=== PATIENT | male | born 1940 | race Caucasian/White ===

== ENCOUNTER 2017-07-22 19:06 | Emergency (ER) | payer MEDICARE, MEDICAID | END 2017-07-22 20:10 | disposition home or self-care (01) | LOC: FTE 19:06 | DX: T82.838A Hemorrhage due to vascular prosthetic devices, implants and grafts, initial encounter (principal); I10 Essential (primary) hypertension; E11.9 Type 2 diabetes mellitus without complications; Y82.8 Other medical devices associated with adverse incidents; Z79.84 Long term (current) use of oral hypoglycemic drugs | CPT/HCPCS: 99282 ==

== ENCOUNTER 2017-09-07 07:26 | Day surgery (SDC) | payer MEDICARE, OTHER, MEDICAID ==
[2017-09-07 09:04] LABS: ADD MAN DIFF? NO
[2017-09-07 09:07] LABS: WHITE BLOOD COUNT 4.2 10^3/ul (4.8-10.8)
[2017-09-07 09:07] LABS: ABNORMAL IP MESSAGE 1; BASOPHILS % 0.5 % (0.0-2.0); EOSINOPHILS # 0.1 10^3/ul (0.0-0.5); EOSINOPHILS % 2.9 % (0.0-7.0); HEMATOCRIT 32.5 % (42.0-52.0); HEMOGLOBIN 10.7 g/dl (14.0-18.0); LYMPHOCYTES # 0.5 10^3/ul (0.8-2.9); LYMPHOCYTES % 12.4 % (15.0-51.0); MEAN CORPUSCULAR HEMOGLOBIN 32.3 pg (29.0-33.0); MEAN CORPUSCULAR HGB CONC 32.9 g/dl (32.0-37.0); MEAN CORPUSCULAR VOLUME 98.2 fl (82.0-101.0); MEAN PLATELET VOLUME 10.2 fl (7.4-10.4); MONOCYTE # 0.5 10^3/ul (0.3-0.9); PLATELET COUNT 179 10^3/UL (140-415); POSITIVE DIFF @See below; RED BLOOD COUNT 3.31 10^6/ul (4.70-6.10); RED CELL DISTRIBUTION WIDTH 14.6 % (11.5-14.5)
[2017-09-07 09:15] LABS: HOLD TRANSMISSIONS 1
[2017-09-07 09:27] LABS: INR 1.15; PROTIME 14.9 Sec (11.9-14.9); PT RATIO 1.2
[2017-09-07 09:28] LABS: PARTIAL THROMBOPLASTIN TIME 27.6 Sec (25.0-35.0)
[2017-09-07 09:29] LABS: ANION GAP 14 (8-16); BLOOD UREA NITROGEN 27 mg/dl (7-20); CALCIUM 9.4 mg/dl (8.4-10.2); CARBON DIOXIDE 34 mmol/L (21-31); CHLORIDE 101 mmol/L (97-110); CREATININE 6.78 mg/dl (0.61-1.24); GLUCOSE 99 mg/dl (70-220); POTASSIUM 4.5 mmol/L (3.5-5.1); SODIUM 144 mmol/L (135-144)
[2017-09-07] MEDS ORDERED: IODIXANOL LOCM 100 ML BTL (10:16)
[2017-09-07] MEDS ORDERED: MIDAZOLAM 1 MG/ML 2 ML INJ (10:17)
[2017-09-07] MEDS ORDERED: FENTAnyl 50 MCG/ML VIAL (10:17)
[2017-09-07] MEDS ORDERED: LIDOCAINE 1% (MDV) 10 ML INJ ×2 (10:17→10:39)
[2017-09-07] MEDS ORDERED: hydrALAzine 20 MG INJ (10:40)
== END 2017-09-07 11:32 | disposition home or self-care (01) ==
LOC: SDS 07:26
DX: T82.858A Stenosis of other vascular prosthetic devices, implants and grafts, initial encounter (principal); Y84.1 Kidney dialysis as the cause of abnormal reaction of the patient, or of later complication, without mention of misadventure at the time of the procedure; I12.0 Hypertensive chronic kidney disease with stage 5 chronic kidney disease or end stage renal disease; N18.6 End stage renal disease
CPT/HCPCS: 36589; 75820; 80048; 82962; 85025; 85610; 85730

== ENCOUNTER 2018-02-23 22:10 | Emergency (ER) | payer MEDICARE, MEDICAID | END 2018-02-24 03:24 | disposition home or self-care (01) | LOC: E/R 22:10 | DX: S09.90XA Unspecified injury of head, initial encounter (principal); R40.2142 Coma scale, eyes open, spontaneous, at arrival to emergency department; R40.2252 Coma scale, best verbal response, oriented, at arrival to emergency department; R40.2362 Coma scale, best motor response, obeys commands, at arrival to emergency department; I12.9 Hypertensive chronic kidney disease with stage 1 through stage 4 chronic kidney disease, or unspecified chronic kidney disease; N18.9 Chronic kidney disease, unspecified; E11.22 Type 2 diabetes mellitus with diabetic chronic kidney disease; R93.0 Abnormal findings on diagnostic imaging of skull and head, not elsewhere classified; W18.30XA Fall on same level, unspecified, initial encounter; Y92.009 Unspecified place in unspecified non-institutional (private) residence as the place of occurrence of the external cause; Z79.84 Long term (current) use of oral hypoglycemic drugs | CPT/HCPCS: 70450; 73080-RT; 99284-25 ==

== ENCOUNTER 2018-03-03 13:38 | Emergency (ER) | payer MEDICARE, MEDICAID ==
[2018-03-03 14:36] LABS: ADD MAN DIFF? NO
[2018-03-03 14:41] LABS: ABNORMAL IP MESSAGE 1; BASOPHILS % 0.5 % (0.0-2.0); EOSINOPHILS # 0.2 10^3/ul (0.0-0.5); EOSINOPHILS % 3.6 % (0.0-7.0); HEMATOCRIT 29.9 % (42.0-52.0); HEMOGLOBIN 9.9 g/dl (14.0-18.0); LYMPHOCYTES # 0.3 10^3/ul (0.8-2.9); LYMPHOCYTES % 4.9 % (15.0-51.0); MEAN CORPUSCULAR HEMOGLOBIN 29.1 pg (29.0-33.0); MEAN CORPUSCULAR HGB CONC 33.1 g/dl (32.0-37.0); MEAN CORPUSCULAR VOLUME 87.9 fl (82.0-101.0); MEAN PLATELET VOLUME 9.1 fl (7.4-10.4); MONOCYTE # 0.7 10^3/ul (0.3-0.9); MONOCYTES % 12.4 % (0.0-11.0); NEUTROPHIL # 4.4 10^3/ul (1.6-7.5); NEUTROPHILS % 78.4 % (39.0-77.0); PLATELET COUNT 162 10^3/UL (140-415); POSITIVE DIFF @See below; RED CELL DISTRIBUTION WIDTH 14.3 % (11.5-14.5)
[2018-03-03 14:41] LABS: WHITE BLOOD COUNT 5.6 10^3/ul (4.8-10.8)
[2018-03-03 14:57] LABS: ALANINE AMINOTRANSFERASE 19 IU/L (13-69); ALBUMIN 3.5 g/dl (3.3-4.9); ALKALINE PHOSPHATASE 59 IU/L (42-121); ANION GAP 12 (5-13); ASPARTATE AMINO TRANSFERASE 18 IU/L (15-46); BILIRUBIN,INDIRECT 0.1 mg/dl (0-1.1); BILIRUBIN,TOTAL 0.1 mg/dl (0.2-1.3); BLOOD UREA NITROGEN 29 mg/dl (7-20); CALCIUM 9.3 mg/dl (8.4-10.2); CARBON DIOXIDE 30 mmol/L (21-31); CHLORIDE 96 mmol/L (97-110); CREATININE 4.48 mg/dl (0.61-1.24); GLUCOSE 158 mg/dl (70-220); LIPASE 168 U/L (23-300); POTASSIUM 3.7 mmol/L (3.5-5.1); SODIUM 138 mmol/L (135-144); TOTAL PROTEIN 6.4 g/dl (6.1-8.1)
[2018-03-03] MEDS: DILTIAZEM 30 MG TAB PO (15:36)
== END 2018-03-03 17:02 | disposition home or self-care (01) ==
LOC: E/R 13:38
DX: R00.0 Tachycardia, unspecified (principal); I12.9 Hypertensive chronic kidney disease with stage 1 through stage 4 chronic kidney disease, or unspecified chronic kidney disease; N18.9 Chronic kidney disease, unspecified; E11.22 Type 2 diabetes mellitus with diabetic chronic kidney disease; Z79.84 Long term (current) use of oral hypoglycemic drugs; Z99.2 Dependence on renal dialysis
CPT/HCPCS: 71045; 80053; 83690; 84484; 85025; 93005; 99285-25

== ENCOUNTER 2018-07-24 19:38 | Emergency (ER) | payer MEDICARE, MEDICAID ==
[2018-07-24 21:42] LABS: ADD MAN DIFF? NO
[2018-07-24 21:44] LABS: WHITE BLOOD COUNT 6.2 10^3/ul (4.8-10.8)
[2018-07-24 21:44] LABS: ABNORMAL IP MESSAGE 1; BASOPHILS % 0.5 % (0.0-2.0); EOSINOPHILS # 0.1 10^3/ul (0.0-0.5); EOSINOPHILS % 1.8 % (0.0-7.0); HEMATOCRIT 29.3 % (42.0-52.0); HEMOGLOBIN 9.1 g/dl (14.0-18.0); LYMPHOCYTES # 0.4 10^3/ul (0.8-2.9); LYMPHOCYTES % 6.2 % (15.0-51.0); MEAN CORPUSCULAR HEMOGLOBIN 26.4 pg (29.0-33.0); MEAN CORPUSCULAR HGB CONC 31.1 g/dl (32.0-37.0); MEAN CORPUSCULAR VOLUME 84.9 fl (82.0-101.0); MEAN PLATELET VOLUME 10.2 fl (7.4-10.4); MONOCYTE # 0.8 10^3/ul (0.3-0.9); MONOCYTES % 12.8 % (0.0-11.0); NEUTROPHIL # 4.8 10^3/ul (1.6-7.5); NEUTROPHILS % 78.2 % (39.0-77.0); PLATELET COUNT 141 10^3/UL (140-415); POSITIVE DIFF @See below; RED BLOOD COUNT 3.45 10^6/ul (4.70-6.10); RED CELL DISTRIBUTION WIDTH 18.8 % (11.5-14.5)
[2018-07-24 21:50] LABS: ALANINE AMINOTRANSFERASE 24 IU/L (13-69); ALBUMIN 3.7 g/dl (3.3-4.9); ALBUMIN/GLOBULIN RATIO 1.15; ALKALINE PHOSPHATASE 52 IU/L (42-121); ANION GAP 12 (5-13); ASPARTATE AMINO TRANSFERASE 28 IU/L (15-46); BILIRUBIN,INDIRECT 0.6 mg/dl (0-1.1); BILIRUBIN,TOTAL 0.6 mg/dl (0.2-1.3); BLOOD UREA NITROGEN 50 mg/dl (7-20); CALCIUM 10.5 mg/dl (8.4-10.2); CARBON DIOXIDE 30 mmol/L (21-31); CHLORIDE 92 mmol/L (97-110); CREATININE 5.44 mg/dl (0.61-1.24); GLUCOSE 157 mg/dl (70-220); LIPASE 129 U/L (23-300); POTASSIUM 4.5 mmol/L (3.5-5.1); SODIUM 134 mmol/L (135-144); TOTAL PROTEIN 6.9 g/dl (6.1-8.1)
[2018-07-24 22:01] LABS: TROPONIN-I 0.022 ng/ml (0.000-0.120)
[2018-07-24] MEDS: KETOROLAC 15 MG INJ IV (22:03)
== END 2018-07-24 23:12 | disposition home or self-care (01) ==
LOC: E/R 19:38
DX: R07.9 Chest pain, unspecified (principal); S00.03XA Contusion of scalp, initial encounter; F03.91 Unspecified dementia, unspecified severity, with behavioral disturbance; N18.6 End stage renal disease; I50.9 Heart failure, unspecified; I13.2 Hypertensive heart and chronic kidney disease with heart failure and with stage 5 chronic kidney disease, or end stage renal disease; I25.10 Atherosclerotic heart disease of native coronary artery without angina pectoris; E11.22 Type 2 diabetes mellitus with diabetic chronic kidney disease; W18.39XA Other fall on same level, initial encounter; Y92.9 Unspecified place or not applicable; Z99.2 Dependence on renal dialysis; Z79.01 Long term (current) use of anticoagulants
CPT/HCPCS: 36415; 70450; 71045; 80053; 83690; 84484; 85025; 96374; 99285-25

== ENCOUNTER 2018-07-26 17:01 | Inpatient (IN) | payer MEDICARE, OTHER, MEDICAID ==
[2018-07-26 19:18] LABS: ADD MAN DIFF? NO
[2018-07-26 19:42] LABS: AMMONIA < 9 umol/l (9-30)
[2018-07-26 19:46] LABS: INR 1.27; PT RATIO 1.3
[2018-07-26 19:47] LABS: PARTIAL THROMBOPLASTIN TIME 24.2 Sec (23.0-35.0)
[2018-07-26 19:49] LABS: ALANINE AMINOTRANSFERASE 20 IU/L (13-69); ALBUMIN 3.8 g/dl (3.3-4.9); ALBUMIN/GLOBULIN RATIO 1.18; ALKALINE PHOSPHATASE 66 IU/L (42-121); ANION GAP 11 (5-13); ASPARTATE AMINO TRANSFERASE 25 IU/L (15-46); BILIRUBIN,INDIRECT 0.9 mg/dl (0-1.1); BILIRUBIN,TOTAL 0.9 mg/dl (0.2-1.3); BLOOD UREA NITROGEN 30 mg/dl (7-20); CARBON DIOXIDE 30 mmol/L (21-31); CHLORIDE 94 mmol/L (97-110); CREATININE 3.78 mg/dl (0.61-1.24); GLUCOSE 136 mg/dl (70-220); POTASSIUM 3.8 mmol/L (3.5-5.1); SODIUM 135 mmol/L (135-144)
[2018-07-26 20:00] LABS: TROPONIN-I 0.017 ng/ml (0.000-0.120)
[2018-07-26 20:56] LABS: WHITE BLOOD COUNT 5.6 10^3/ul (4.8-10.8)
[2018-07-26 20:56] LABS: ABNORMAL IP MESSAGE 1; BASOPHILS % 0.4 % (0.0-2.0); EOSINOPHILS # 0.1 10^3/ul (0.0-0.5); EOSINOPHILS % 0.9 % (0.0-7.0); HEMATOCRIT 24.1 % (42.0-52.0); HEMOGLOBIN 7.8 g/dl (14.0-18.0); LYMPHOCYTES # 0.2 10^3/ul (0.8-2.9); LYMPHOCYTES % 3.9 % (15.0-51.0); MEAN CORPUSCULAR HEMOGLOBIN 27.1 pg (29.0-33.0); MEAN CORPUSCULAR HGB CONC 32.4 g/dl (32.0-37.0); MEAN CORPUSCULAR VOLUME 83.7 fl (82.0-101.0); MEAN PLATELET VOLUME 8.4 fl (7.4-10.4); MONOCYTE # 0.7 10^3/ul (0.3-0.9); MONOCYTES % 12.9 % (0.0-11.0); NEUTROPHIL # 4.6 10^3/ul (1.6-7.5); NEUTROPHILS % 81.7 % (39.0-77.0); PLATELET COUNT 105 10^3/UL (140-415); POSITIVE DIFF @See below; RED BLOOD COUNT 2.88 10^6/ul (4.70-6.10); RED CELL DISTRIBUTION WIDTH 18.9 % (11.5-14.5)
[2018-07-26] MEDS: SOD CHLORIDE 0.9% 1,000 ML IV (21:26)
[2018-07-26] MEDS ORDERED: ONDANSETRON 4 MG INJ IV (21:30)
[2018-07-26] MEDS: hydrALAzine 20 MG INJ IV (21:55)
[2018-07-26 22:09] LABS: LACTIC ACID 0.7 mmol/L (0.5-2.0)
[2018-07-26] MEDS: DESMOPRESSIN 22.5 MCG in SOD CHLORIDE 0.9% 50 ML IVPB (22:45)
[2018-07-27 01:30] LABS: IMMEDIATE SPIN CROSSMATCH 1 2
[2018-07-27] MEDS: ALBUTEROL 0.083% (NEB) 2.5 MG/3 ML AMP NEB (05:54)
[2018-07-27] MEDS: hydrALAzine 20 MG INJ IV (05:56)
[2018-07-27] MEDS ORDERED: SEVELAMER 800 MG TAB PO (08:00)
[2018-07-27] MEDS: CALCIUM ACETATE 667 MG CAP PO ×3 (08:00→17:59)
[2018-07-27] MEDS: BENAZEPRIL 40 MG TAB PO (09:00)
[2018-07-27] MEDS: MULTIVIT/CA CARB/B CMPLX/FA TAB PO (09:00)
[2018-07-27 09:16] LABS: ADD MAN DIFF? NO
[2018-07-27 09:18] LABS: ABNORMAL IP MESSAGE 1; BASOPHILS % 0.2 % (0.0-2.0); EOSINOPHILS % 0.5 % (0.0-7.0); HEMATOCRIT 23.8 % (42.0-52.0); HEMOGLOBIN 7.5 g/dl (14.0-18.0); LYMPHOCYTES # 0.2 10^3/ul (0.8-2.9); LYMPHOCYTES % 3.3 % (15.0-51.0); MEAN CORPUSCULAR HEMOGLOBIN 27.2 pg (29.0-33.0); MEAN CORPUSCULAR HGB CONC 31.5 g/dl (32.0-37.0); MEAN CORPUSCULAR VOLUME 86.2 fl (82.0-101.0); MEAN PLATELET VOLUME 8.7 fl (7.4-10.4); MONOCYTE # 0.6 10^3/ul (0.3-0.9); MONOCYTES % 9.7 % (0.0-11.0); NEUTROPHIL # 5.3 10^3/ul (1.6-7.5); PLATELET COUNT 109 10^3/UL (140-415); POSITIVE DIFF @See below; RED BLOOD COUNT 2.76 10^6/ul (4.70-6.10); RED CELL DISTRIBUTION WIDTH 19.7 % (11.5-14.5)
[2018-07-27 09:18] LABS: WHITE BLOOD COUNT 6.1 10^3/ul (4.8-10.8)
[2018-07-27 09:35] LABS: ALANINE AMINOTRANSFERASE 22 IU/L (13-69); ALBUMIN 3.7 g/dl (3.3-4.9); ALBUMIN/GLOBULIN RATIO 1.12; ALKALINE PHOSPHATASE 65 IU/L (42-121); ANION GAP 10 (5-13); ASPARTATE AMINO TRANSFERASE 25 IU/L (15-46); BILIRUBIN,INDIRECT 0.9 mg/dl (0-1.1); BILIRUBIN,TOTAL 0.9 mg/dl (0.2-1.3); BLOOD UREA NITROGEN 33 mg/dl (7-20); CALCIUM 9.3 mg/dl (8.4-10.2); CARBON DIOXIDE 28 mmol/L (21-31); CHLORIDE 97 mmol/L (97-110); CREATININE 4.74 mg/dl (0.61-1.24); GLUCOSE 127 mg/dl (70-220); POTASSIUM 4.1 mmol/L (3.5-5.1); SODIUM 135 mmol/L (135-144)
[2018-07-27] MEDS: INSULIN ASPART [NOVOLOG] 3 ML PEN SC ×3 (13:00→21:35)
[2018-07-27] MEDS ORDERED: SEVELAMER CARBONATE 800 MG TABLET PO (17:35)
[2018-07-27] MEDS: SEVELAMER CARBONATE 0.8 GM PKT PO (19:16)
[2018-07-27] MEDS: SOD CHLORIDE 0.9% 1,000 ML IV (21:36)
[2018-07-27] MEDS: LORAZEPAM 2 MG INJ IV (22:43)
[2018-07-28] MEDS: INSULIN ASPART [NOVOLOG] 3 ML PEN SC ×6 (01:13→20:48)
[2018-07-28] MEDS: ACCU-CHEK XX (02:00)
[2018-07-28] MEDS: hydrALAzine 20 MG INJ IV ×2 (02:32→05:38)
[2018-07-28 05:25] LABS: ADD MAN DIFF? NO
[2018-07-28 05:32] LABS: ABNORMAL IP MESSAGE 1; BASOPHILS % 0.1 % (0.0-2.0); HEMATOCRIT 23.2 % (42.0-52.0); HEMOGLOBIN 7.2 g/dl (14.0-18.0); LYMPHOCYTES # 0.1 10^3/ul (0.8-2.9); LYMPHOCYTES % 1.6 % (15.0-51.0); MEAN CORPUSCULAR HEMOGLOBIN 26.9 pg (29.0-33.0); MEAN CORPUSCULAR VOLUME 86.6 fl (82.0-101.0); MONOCYTE # 0.9 10^3/ul (0.3-0.9); NEUTROPHIL # 7.1 10^3/ul (1.6-7.5); NEUTROPHILS % 86.7 % (39.0-77.0); PLATELET COUNT 127 10^3/UL (140-415); POSITIVE DIFF @See below; RED BLOOD COUNT 2.68 10^6/ul (4.70-6.10); RED CELL DISTRIBUTION WIDTH 19.7 % (11.5-14.5)
[2018-07-28 05:32] LABS: WHITE BLOOD COUNT 8.2 10^3/ul (4.8-10.8)
[2018-07-28] MEDS: PANTOPRAZOLE 40 MG INJ IV (05:38)
[2018-07-28 05:46] LABS: INR 1.47; PARTIAL THROMBOPLASTIN TIME 33.7 Sec (23.0-35.0); PROTIME 17.9 Sec (11.9-14.9); PT RATIO 1.4
[2018-07-28 05:49] LABS: ALANINE AMINOTRANSFERASE 18 IU/L (13-69); ALBUMIN 3.9 g/dl (3.3-4.9); ALBUMIN/GLOBULIN RATIO 1.18; ALKALINE PHOSPHATASE 65 IU/L (42-121); ANION GAP 15 (5-13); ASPARTATE AMINO TRANSFERASE 33 IU/L (15-46); BLOOD UREA NITROGEN 46 mg/dl (7-20); CARBON DIOXIDE 25 mmol/L (21-31); CHLORIDE 97 mmol/L (97-110); CREATININE 5.59 mg/dl (0.61-1.24); GLUCOSE 90 mg/dl (70-220); POTASSIUM 4.5 mmol/L (3.5-5.1); SODIUM 137 mmol/L (135-144); TOTAL PROTEIN 7.2 g/dl (6.1-8.1)
[2018-07-28 08:09] LABS: HEPATITIS B SURFACE ANTIGEN NEGATIVE (NEGATIVE)
[2018-07-28] MEDS: SEVELAMER CARBONATE 0.8 GM PKT PO ×3 (08:30→17:35)
[2018-07-28] MEDS: CALCIUM ACETATE 667 MG CAP PO ×3 (08:30→17:35)
[2018-07-28] MEDS: MULTIVIT/CA CARB/B CMPLX/FA TAB PO (08:35)
[2018-07-28] MEDS: BENAZEPRIL 40 MG TAB PO (08:35)
[2018-07-28] MEDS: AMLODIPINE 5 MG TAB PO ×2 (08:35→21:00)
[2018-07-28] MEDS ORDERED: GLUCAGON 1 MG INJ IM (17:00)
[2018-07-28] MEDS ORDERED: GLUCOSE GEL 15 GRAM TUBE PO ×2 (17:00)
[2018-07-28] MEDS ORDERED: DEXTROSE 50% 50 ML SYRINGE IV ×2 (17:00)
[2018-07-28] MEDS ORDERED: GLUCOSE GEL 15 GRAM TUBE BUCCAL (17:00)
[2018-07-28] MEDS: EPOETIN ALFA-EPBX (NON-ESRD 10,000 UNIT/ML VIAL SC (18:54)
[2018-07-29] MEDS: INSULIN ASPART [NOVOLOG] 3 ML PEN SC ×6 (00:58→20:18)
[2018-07-29] MEDS: hydrALAzine 20 MG INJ IV (01:04)
[2018-07-29] MEDS: ACCU-CHEK XX (02:00)
[2018-07-29 04:59] LABS: ADD MAN DIFF? NO
[2018-07-29 05:28] LABS: INR 1.39; PARTIAL THROMBOPLASTIN TIME 23.4 Sec (23.0-35.0); PROTIME 17.2 Sec (11.9-14.9); PT RATIO 1.3
[2018-07-29 06:04] LABS: ABNORMAL IP MESSAGE 1; BASOPHILS % 0.1 % (0.0-2.0); HEMATOCRIT 22.3 % (42.0-52.0); LYMPHOCYTES # 0.2 10^3/ul (0.8-2.9); LYMPHOCYTES % 1.9 % (15.0-51.0); MEAN CORPUSCULAR HEMOGLOBIN 26.5 pg (29.0-33.0); MEAN CORPUSCULAR HGB CONC 30.5 g/dl (32.0-37.0); MEAN CORPUSCULAR VOLUME 86.8 fl (82.0-101.0); MEAN PLATELET VOLUME 9.6 fl (7.4-10.4); MONOCYTE # 0.9 10^3/ul (0.3-0.9); MONOCYTES % 8.6 % (0.0-11.0); NEUTROPHIL # 9.5 10^3/ul (1.6-7.5); NEUTROPHILS % 88.5 % (39.0-77.0); PLATELET COUNT 125 10^3/UL (140-415); POSITIVE DIFF @See below; RED BLOOD COUNT 2.57 10^6/ul (4.70-6.10); RED CELL DISTRIBUTION WIDTH 20.9 % (11.5-14.5)
[2018-07-29 06:04] LABS: WHITE BLOOD COUNT 10.7 10^3/ul (4.8-10.8)
[2018-07-29 06:08] LABS: HEMOGLOBIN 6.8 g/dl (14.0-18.0)
[2018-07-29 06:17] LABS: ALANINE AMINOTRANSFERASE 31 IU/L (13-69); ALBUMIN 3.8 g/dl (3.3-4.9); ALBUMIN/GLOBULIN RATIO 1.11; ALKALINE PHOSPHATASE 58 IU/L (42-121); ANION GAP 16 (5-13); ASPARTATE AMINO TRANSFERASE 29 IU/L (15-46); BILIRUBIN,INDIRECT 1.4 mg/dl (0-1.1); BILIRUBIN,TOTAL 1.4 mg/dl (0.2-1.3); BLOOD UREA NITROGEN 33 mg/dl (7-20); CALCIUM 9.9 mg/dl (8.4-10.2); CARBON DIOXIDE 25 mmol/L (21-31); CHLORIDE 100 mmol/L (97-110); CREATININE 4.32 mg/dl (0.61-1.24); GLUCOSE 91 mg/dl (70-220); POTASSIUM 4.3 mmol/L (3.5-5.1); SODIUM 141 mmol/L (135-144); TOTAL PROTEIN 7.2 g/dl (6.1-8.1)
[2018-07-29 06:48] LABS: ADD MAN DIFF? NO
[2018-07-29 06:54] LABS: WHITE BLOOD COUNT 10.5 10^3/ul (4.8-10.8)
[2018-07-29 06:54] LABS: ABNORMAL IP MESSAGE 1; BASOPHILS % 0.1 % (0.0-2.0); HEMATOCRIT 22.4 % (42.0-52.0); LYMPHOCYTES # 0.2 10^3/ul (0.8-2.9); MEAN CORPUSCULAR HEMOGLOBIN 26.4 pg (29.0-33.0); MEAN CORPUSCULAR HGB CONC 30.4 g/dl (32.0-37.0); MEAN CORPUSCULAR VOLUME 86.8 fl (82.0-101.0); MEAN PLATELET VOLUME 9.8 fl (7.4-10.4); MONOCYTES % 9.2 % (0.0-11.0); NEUTROPHIL # 9.2 10^3/ul (1.6-7.5); NEUTROPHILS % 87.8 % (39.0-77.0); PLATELET COUNT 106 10^3/UL (140-415); POSITIVE DIFF @See below; RED BLOOD COUNT 2.58 10^6/ul (4.70-6.10)
[2018-07-29 07:08] LABS: HEMOGLOBIN 6.8 g/dl (14.0-18.0)
[2018-07-29] MEDS: CALCIUM ACETATE 667 MG CAP PO ×3 (07:33→16:46)
[2018-07-29] MEDS: SEVELAMER CARBONATE 0.8 GM PKT PO ×3 (07:33→16:46)
[2018-07-29] MEDS: AMLODIPINE 5 MG TAB PO ×2 (07:33→20:19)
[2018-07-29] MEDS: BENAZEPRIL 40 MG TAB PO (07:33)
[2018-07-29] MEDS: MULTIVIT/CA CARB/B CMPLX/FA TAB PO (07:34)
[2018-07-29] MEDS ORDERED: ACETAMINOPHEN 325 MG TAB PO (08:30)
[2018-07-29] MEDS ORDERED: SODIUM CHLORIDE 0.9% 1L BAG IV (08:30)
[2018-07-29] MEDS ORDERED: ALBUMIN HUMAN 25% 100 ML IV (08:30)
[2018-07-29 08:43] LABS: ANISOCYTOSIS 1+ (0-0); BURR CELLS 1+ (0-0); EOSINOPHILS % (M) 1 % (0-7); LYMPHOCYTES #M 0.2 10^3/ul (0.8-2.9); LYMPHOCYTES % (M) 2 % (15-51); MONOCYTE #M 0.7 10^3/ul (0.3-0.9); MONOCYTES % (M) 7 % (0-11); PLATELET ESTIMATE DECREASED; POIKILOCYTOSIS 1+ (0-0); POLYCHROMASIA 2+ (0-0); SEGMENTED NEUTROPHILS (M) % 90 % (39-77); SMUDGE%M 17 % (0-0)
[2018-07-29] MEDS: FAMOTIDINE 20 MG INJ IV (08:46)
[2018-07-29] MEDS: SOD CHLORIDE 0.9% 250 ML IV* (09:13)
[2018-07-29] MEDS: DIPHENHYDRAMINE 50 MG INJ IV (09:13)
[2018-07-29] MEDS: EPOETIN ALFA-EPBX (ESRD) 3,000 UNIT/ML VIAL SC (11:11)
[2018-07-29] MEDS: FUROSEMIDE 40 MG INJ IV (12:38)
[2018-07-29 14:12] LABS: ADD MAN DIFF? NO
[2018-07-29 14:13] LABS: WHITE BLOOD COUNT 10.9 10^3/ul (4.8-10.8)
[2018-07-29 14:13] LABS: ABNORMAL IP MESSAGE 1; BASOPHILS % 0.1 % (0.0-2.0); HEMATOCRIT 25.5 % (42.0-52.0); HEMOGLOBIN 7.9 g/dl (14.0-18.0); LYMPHOCYTES # 0.2 10^3/ul (0.8-2.9); LYMPHOCYTES % 1.6 % (15.0-51.0); MEAN CORPUSCULAR HEMOGLOBIN 26.9 pg (29.0-33.0); MEAN CORPUSCULAR VOLUME 86.7 fl (82.0-101.0); MEAN PLATELET VOLUME 9.8 fl (7.4-10.4); MONOCYTES % 9.6 % (0.0-11.0); NEUTROPHIL # 9.5 10^3/ul (1.6-7.5); NEUTROPHILS % 87.9 % (39.0-77.0); PLATELET COUNT 105 10^3/UL (140-415); POSITIVE DIFF @See below; RED BLOOD COUNT 2.94 10^6/ul (4.70-6.10); RED CELL DISTRIBUTION WIDTH 19.7 % (11.5-14.5)
[2018-07-30 00:28] LABS: Arterial Base Excess 2.9 mmol/L (-3.0-3); Arterial Blood Gas Oxygen Sat 88.1 mmHG (95.0-100.0); Arterial COHb 1.3 % (0.0-3.0); Arterial Fraction of Oxyhgb 86.6 % (93.0-99.0); Arterial HCO3 26.8 mmol/L (22.0-26.0); Arterial MetHb 0.4 % (0.0-1.5); Arterial pCO2 38.2 mmhg (35-45); MODE NASAL CANNULA; Site LB
[2018-07-30] MEDS: ALBUTEROL 0.083% (NEB) 2.5 MG/3 ML AMP NEB (00:44)
[2018-07-30] MEDS: INSULIN ASPART [NOVOLOG] 3 ML PEN SC ×6 (01:00→20:28)
[2018-07-30] MEDS: LEVETIRACETAM 500 MG (PMX) 100 ML IVPB ×3 (01:38→20:24)
[2018-07-30] MEDS: ACCU-CHEK XX (02:00)
[2018-07-30 05:10] LABS: ADD MAN DIFF? NO
[2018-07-30 05:16] LABS: ABNORMAL IP MESSAGE 1; BASOPHILS % 0.2 % (0.0-2.0); HEMOGLOBIN 7.4 g/dl (14.0-18.0); LYMPHOCYTES # 0.3 10^3/ul (0.8-2.9); LYMPHOCYTES % 2.4 % (15.0-51.0); MEAN CORPUSCULAR HEMOGLOBIN 26.6 pg (29.0-33.0); MEAN CORPUSCULAR HGB CONC 30.8 g/dl (32.0-37.0); MEAN CORPUSCULAR VOLUME 86.3 fl (82.0-101.0); MEAN PLATELET VOLUME 10.3 fl (7.4-10.4); MONOCYTE # 1.4 10^3/ul (0.3-0.9); MONOCYTES % 12.5 % (0.0-11.0); NEUTROPHIL # 9.3 10^3/ul (1.6-7.5); NEUTROPHILS % 84.3 % (39.0-77.0); PLATELET COUNT 105 10^3/UL (140-415); POSITIVE DIFF @See below; RED BLOOD COUNT 2.78 10^6/ul (4.70-6.10); RED CELL DISTRIBUTION WIDTH 19.9 % (11.5-14.5)
[2018-07-30 05:31] LABS: INR 1.58; PT RATIO 1.5
[2018-07-30 05:32] LABS: PARTIAL THROMBOPLASTIN TIME 40.4 Sec (23.0-35.0)
[2018-07-30 05:44] LABS: MAGNESIUM 2.2 mg/dl (1.7-2.5)
[2018-07-30 05:52] LABS: ALANINE AMINOTRANSFERASE 23 IU/L (13-69); ALBUMIN 3.4 g/dl (3.3-4.9); ALBUMIN/GLOBULIN RATIO 1.09; ALKALINE PHOSPHATASE 49 IU/L (42-121); ANION GAP 13 (5-13); ASPARTATE AMINO TRANSFERASE 26 IU/L (15-46); BILIRUBIN,INDIRECT 1.6 mg/dl (0-1.1); BILIRUBIN,TOTAL 1.6 mg/dl (0.2-1.3); BLOOD UREA NITROGEN 58 mg/dl (7-20); CALCIUM 9.8 mg/dl (8.4-10.2); CARBON DIOXIDE 27 mmol/L (21-31); CHLORIDE 100 mmol/L (97-110); CREATININE 5.75 mg/dl (0.61-1.24); GLUCOSE 134 mg/dl (70-220); POTASSIUM 4.1 mmol/L (3.5-5.1); SODIUM 140 mmol/L (135-144); TOTAL PROTEIN 6.5 g/dl (6.1-8.1)
[2018-07-30 06:10] LABS: AADO2 Arterial 281.3 mmHg (7.0-24.0); Arterial Base Excess 3.7 mmol/L (-3.0-3); Arterial Blood Gas Oxygen Sat 97.7 mmHG (95.0-100.0); Arterial COHb 0.7 % (0.0-3.0); Arterial Fraction of Oxyhgb 96.6 % (93.0-99.0); Arterial HCO3 26.8 mmol/L (22.0-26.0); Arterial MetHb 0.4 % (0.0-1.5); Arterial pCO2 34.3 mmhg (35-45); MODE HFNC; Site LB
[2018-07-30] MEDS: CALCIUM ACETATE 667 MG CAP PO ×3 (08:08→18:13)
[2018-07-30] MEDS: SEVELAMER CARBONATE 0.8 GM PKT PO ×3 (08:08→18:13)
[2018-07-30] MEDS: MULTIVIT/CA CARB/B CMPLX/FA TAB PO (09:07)
[2018-07-30] MEDS: FAMOTIDINE 20 MG INJ IV (09:13)
[2018-07-30 14:38] LABS: IMMEDIATE SPIN CROSSMATCH 1 2
[2018-07-30] MEDS: LORAZEPAM 2 MG INJ IV (17:52)
[2018-07-30] MEDS: BENAZEPRIL 40 MG TAB PO (18:03)
[2018-07-30] MEDS: AMLODIPINE 5 MG TAB PO ×2 (18:04→20:20)
[2018-07-30] MEDS: PIPER-TAZO 2.25 GM (PMX) 50 ML IVPB (18:13)
[2018-07-30] MEDS: EPOETIN ALFA-EPBX (ESRD) 3,000 UNIT/ML VIAL SC (18:32)
[2018-07-30] MEDS ORDERED: LORAZEPAM 2 MG INJ IV (20:19)
[2018-07-31] MEDS: PIPER-TAZO 2.25 GM (PMX) 50 ML IVPB ×4 (00:32→22:13)
[2018-07-31] MEDS: INSULIN ASPART [NOVOLOG] 3 ML PEN SC ×6 (00:48→20:33)
[2018-07-31] MEDS: ACCU-CHEK XX (02:00)
[2018-07-31 05:14] LABS: ADD MAN DIFF? NO
[2018-07-31 05:23] LABS: WHITE BLOOD COUNT 11.6 10^3/ul (4.8-10.8)
[2018-07-31 05:23] LABS: ABNORMAL IP MESSAGE 1; BASOPHILS % 0.1 % (0.0-2.0); EOSINOPHILS % 0.1 % (0.0-7.0); HEMATOCRIT 29.4 % (42.0-52.0); HEMOGLOBIN 9.2 g/dl (14.0-18.0); LYMPHOCYTES # 0.3 10^3/ul (0.8-2.9); LYMPHOCYTES % 2.8 % (15.0-51.0); MEAN CORPUSCULAR HEMOGLOBIN 26.8 pg (29.0-33.0); MEAN CORPUSCULAR HGB CONC 31.3 g/dl (32.0-37.0); MEAN CORPUSCULAR VOLUME 85.7 fl (82.0-101.0); MEAN PLATELET VOLUME 9.5 fl (7.4-10.4); MONOCYTE # 1.3 10^3/ul (0.3-0.9); MONOCYTES % 11.3 % (0.0-11.0); NEUTROPHIL # 9.9 10^3/ul (1.6-7.5); NEUTROPHILS % 84.9 % (39.0-77.0); PLATELET COUNT 106 10^3/UL (140-415); POSITIVE DIFF @See below; RED BLOOD COUNT 3.43 10^6/ul (4.70-6.10); RED CELL DISTRIBUTION WIDTH 18.6 % (11.5-14.5)
[2018-07-31 05:39] LABS: INR 1.48; PT RATIO 1.4
[2018-07-31 05:40] LABS: PARTIAL THROMBOPLASTIN TIME 38.5 Sec (23.0-35.0)
[2018-07-31 05:47] LABS: AADO2 Arterial 415.5 mmHg (7.0-24.0); Arterial Base Excess -0.8 mmol/L (-3.0-3); Arterial Blood Gas Oxygen Sat 99.6 mmHG (95.0-100.0); Arterial COHb 0.7 % (0.0-3.0); Arterial Fraction of Oxyhgb 98.5 % (93.0-99.0); Arterial HCO3 23.3 mmol/L (22.0-26.0); Arterial MetHb 0.4 % (0.0-1.5); MODE HFNC; Site LB
[2018-07-31 06:10] LABS: ALANINE AMINOTRANSFERASE 23 IU/L (13-69); ALBUMIN 3.5 g/dl (3.3-4.9); ALBUMIN/GLOBULIN RATIO 1.09; ALKALINE PHOSPHATASE 54 IU/L (42-121); ANION GAP 9 (5-13); ASPARTATE AMINO TRANSFERASE 21 IU/L (15-46); BILIRUBIN,INDIRECT 1.2 mg/dl (0-1.1); BILIRUBIN,TOTAL 1.2 mg/dl (0.2-1.3); BLOOD UREA NITROGEN 47 mg/dl (7-20); CARBON DIOXIDE 28 mmol/L (21-31); CHLORIDE 104 mmol/L (97-110); CREATININE 4.39 mg/dl (0.61-1.24); GLUCOSE 116 mg/dl (70-220); POTASSIUM 4.3 mmol/L (3.5-5.1); SODIUM 141 mmol/L (135-144); TOTAL PROTEIN 6.7 g/dl (6.1-8.1)
[2018-07-31] MEDS: AMLODIPINE 5 MG TAB PO ×2 (09:35→20:10)
[2018-07-31] MEDS: BENAZEPRIL 40 MG TAB PO (09:36)
[2018-07-31] MEDS: SEVELAMER CARBONATE 0.8 GM PKT PO ×3 (09:36→17:39)
[2018-07-31] MEDS: MULTIVIT/CA CARB/B CMPLX/FA TAB PO (09:36)
[2018-07-31] MEDS: LEVETIRACETAM 500 MG (PMX) 100 ML IVPB ×2 (09:37→20:10)
[2018-07-31] MEDS: CALCIUM ACETATE 667 MG CAP PO ×3 (09:37→17:39)
[2018-07-31] MEDS: FAMOTIDINE 20 MG INJ IV (09:55)
[2018-08-01] MEDS: INSULIN ASPART [NOVOLOG] 3 ML PEN SC ×6 (00:44→21:15)
[2018-08-01] MEDS: ACCU-CHEK XX (01:49)
[2018-08-01 04:44] LABS: AADO2 Arterial 116.7 mmHg (7.0-24.0); Arterial Base Excess 0.4 mmol/L (-3.0-3); Arterial Blood Gas Oxygen Sat 97.2 mmHG (95.0-100.0); Arterial COHb 1.3 % (0.0-3.0); Arterial Fraction of Oxyhgb 95.6 % (93.0-99.0); Arterial HCO3 24.3 mmol/L (22.0-26.0); Arterial MetHb 0.3 % (0.0-1.5); Arterial pCO2 36.8 mmhg (35-45); MODE HFNC; Site LB
[2018-08-01 05:19] LABS: ADD MAN DIFF? NO
[2018-08-01 05:23] LABS: WHITE BLOOD COUNT 9.4 10^3/ul (4.8-10.8)
[2018-08-01 05:23] LABS: ABNORMAL IP MESSAGE 1; BASOPHILS % 0.2 % (0.0-2.0); EOSINOPHILS # 0.1 10^3/ul (0.0-0.5); EOSINOPHILS % 0.9 % (0.0-7.0); HEMOGLOBIN 9.4 g/dl (14.0-18.0); LYMPHOCYTES # 0.3 10^3/ul (0.8-2.9); LYMPHOCYTES % 3.3 % (15.0-51.0); MEAN CORPUSCULAR HEMOGLOBIN 26.7 pg (29.0-33.0); MEAN CORPUSCULAR HGB CONC 31.3 g/dl (32.0-37.0); MEAN CORPUSCULAR VOLUME 85.2 fl (82.0-101.0); MEAN PLATELET VOLUME 9.8 fl (7.4-10.4); MONOCYTE # 1.1 10^3/ul (0.3-0.9); MONOCYTES % 11.7 % (0.0-11.0); NEUTROPHIL # 7.8 10^3/ul (1.6-7.5); NEUTROPHILS % 83.3 % (39.0-77.0); PLATELET COUNT 119 10^3/UL (140-415); POSITIVE DIFF @See below; RED BLOOD COUNT 3.52 10^6/ul (4.70-6.10)
[2018-08-01 05:39] LABS: LACTIC ACID 0.8 mmol/L (0.5-2.0)
[2018-08-01 05:44] LABS: INR 1.46; PROTIME 17.8 Sec (11.9-14.9); PT RATIO 1.4
[2018-08-01 05:45] LABS: ALANINE AMINOTRANSFERASE 32 IU/L (13-69); ALBUMIN 3.1 g/dl (3.3-4.9); ALBUMIN/GLOBULIN RATIO 0.96; ALKALINE PHOSPHATASE 49 IU/L (42-121); ANION GAP 10 (5-13); ASPARTATE AMINO TRANSFERASE 16 IU/L (15-46); BLOOD UREA NITROGEN 76 mg/dl (7-20); CALCIUM 10.3 mg/dl (8.4-10.2); CARBON DIOXIDE 26 mmol/L (21-31); CHLORIDE 104 mmol/L (97-110); CREATININE 5.64 mg/dl (0.61-1.24); GLUCOSE 162 mg/dl (70-220); PARTIAL THROMBOPLASTIN TIME 27.4 Sec (23.0-35.0); POTASSIUM 4.5 mmol/L (3.5-5.1); SODIUM 140 mmol/L (135-144); TOTAL PROTEIN 6.3 g/dl (6.1-8.1)
[2018-08-01] MEDS: PIPER-TAZO 2.25 GM (PMX) 50 ML IVPB ×3 (06:23→22:37)
[2018-08-01] MEDS: CALCIUM ACETATE 667 MG CAP PO ×3 (07:35→17:35)
[2018-08-01] MEDS: SEVELAMER CARBONATE 0.8 GM PKT PO ×3 (07:35→17:35)
[2018-08-01] MEDS ORDERED: MIDAZOLAM 1 MG/ML 2 ML INJ (08:02)
[2018-08-01] MEDS: LEVETIRACETAM 500 MG (PMX) 100 ML IVPB ×2 (08:19→21:04)
[2018-08-01] MEDS: FAMOTIDINE 20 MG INJ IV (08:19)
[2018-08-01] MEDS: BENAZEPRIL 40 MG TAB PO (09:00)
[2018-08-01] MEDS: MULTIVIT/CA CARB/B CMPLX/FA TAB PO (09:00)
[2018-08-01] MEDS ORDERED: SEVOFLURANE 15 MIN (09:00)
[2018-08-01] MEDS: AMLODIPINE 5 MG TAB PO ×2 (09:00→21:05)
[2018-08-01] MEDS ORDERED: HUMAN PROTHROMBIN COMPLX IV (10:09)
[2018-08-01] MEDS ORDERED: EVAC CONTAINER IV (10:09)
[2018-08-01 10:29] LABS: ALANINE AMINOTRANSFERASE 26 IU/L (13-69); ALBUMIN 3.1 g/dl (3.3-4.9); ALKALINE PHOSPHATASE 47 IU/L (42-121); ASPARTATE AMINO TRANSFERASE 15 IU/L (15-46); BILIRUBIN,INDIRECT 0.8 mg/dl (0-1.1); BILIRUBIN,TOTAL 0.8 mg/dl (0.2-1.3); TOTAL PROTEIN 6.3 g/dl (6.1-8.1)
[2018-08-01] MEDS: HUMAN PROTHROMBIN COMPLX(PCC) 1,500 UNITS in EVAC CONTAINER 1 BOTTLE IV (10:30)
[2018-08-01] MEDS: BACITRACIN 50000 UNITS INJ (10:32)
[2018-08-01] MEDS: POLYMYXIN B 500000 UNIT INJ (10:33)
[2018-08-01] MEDS: LIDOCAINE 1%/EPI (1:100,000) (MDV) 20 ML (10:33)
[2018-08-01] MEDS: THROMBIN 5000 UNIT VIAL (10:34)
[2018-08-01] MEDS: GELATIN SIZE 100 SPONGE (10:34)
[2018-08-01] MEDS: BACITRACIN/POLYMYXIN 28.35 GM OINT TOP (10:34)
[2018-08-01] MEDS ORDERED: DEXAMETHASONE 4 MG/ML 5 ML INJ (11:59)
[2018-08-01] MEDS ORDERED: ETOMIDATE 20 MG INJ (11:59)
[2018-08-01] MEDS ORDERED: CEFAZOLIN 1 GM INJ (11:59)
[2018-08-01] MEDS ORDERED: ROCURONIUM 50 MG INJ (11:59)
[2018-08-01] MEDS ORDERED: LIDOCAINE 2% (SDV) 5 ML INJ (11:59)
[2018-08-01] MEDS ORDERED: LORAZEPAM 2 MG INJ IV (12:30)
[2018-08-01] MEDS ORDERED: FENTAnyl 50 MCG/ML VIAL IV (12:30)
[2018-08-01] MEDS ORDERED: morphine 2 MG INJ IV (12:30)
[2018-08-01] MEDS ORDERED: MIDAZOLAM 1 MG/ML 2 ML INJ IV (12:30)
[2018-08-01] MEDS ORDERED: DIPHENHYDRAMINE 50 MG INJ IV (12:30)
[2018-08-01] MEDS: FENTAnyl 50 MCG/ML VIAL IV (13:23)
[2018-08-01] MEDS: hydrALAzine 20 MG INJ IV (15:48)
[2018-08-02] MEDS: INSULIN ASPART [NOVOLOG] 3 ML PEN SC ×6 (01:09→21:16)
[2018-08-02] MEDS: ACCU-CHEK XX (02:00)
[2018-08-02] MEDS: PIPER-TAZO 2.25 GM (PMX) 50 ML IVPB ×3 (05:19→22:23)
[2018-08-02 05:39] LABS: ADD MAN DIFF? NO
[2018-08-02 05:51] LABS: ABNORMAL IP MESSAGE 1; BASOPHILS % 0.1 % (0.0-2.0); HEMATOCRIT 30.6 % (42.0-52.0); HEMOGLOBIN 9.6 g/dl (14.0-18.0); LYMPHOCYTES # 0.1 10^3/ul (0.8-2.9); LYMPHOCYTES % 1.5 % (15.0-51.0); MEAN CORPUSCULAR HEMOGLOBIN 26.6 pg (29.0-33.0); MEAN CORPUSCULAR HGB CONC 31.4 g/dl (32.0-37.0); MEAN CORPUSCULAR VOLUME 84.8 fl (82.0-101.0); MEAN PLATELET VOLUME 9.6 fl (7.4-10.4); MONOCYTE # 0.3 10^3/ul (0.3-0.9); MONOCYTES % 3.9 % (0.0-11.0); NEUTROPHIL # 7.1 10^3/ul (1.6-7.5); NEUTROPHILS % 93.8 % (39.0-77.0); PLATELET COUNT 128 10^3/UL (140-415); POSITIVE DIFF @See below; RED BLOOD COUNT 3.61 10^6/ul (4.70-6.10); RED CELL DISTRIBUTION WIDTH 17.4 % (11.5-14.5)
[2018-08-02 05:51] LABS: WHITE BLOOD COUNT 7.5 10^3/ul (4.8-10.8)
[2018-08-02 05:54] LABS: IRON 16 ug/dl (35-150)
[2018-08-02 05:57] LABS: ANION GAP 14 (5-13); BLOOD UREA NITROGEN 87 mg/dl (7-20); CALCIUM 10.1 mg/dl (8.4-10.2); CARBON DIOXIDE 21 mmol/L (21-31); CHLORIDE 106 mmol/L (97-110); CREATININE 6.68 mg/dl (0.61-1.24); GLUCOSE 174 mg/dl (70-220); MAGNESIUM 2.2 mg/dl (1.7-2.5); PHOSPHORUS 5.3 mg/dl (2.5-4.9); POTASSIUM 4.7 mmol/L (3.5-5.1); SODIUM 141 mmol/L (135-144)
[2018-08-02 06:05] LABS: % IRON SATURATION 11 % SAT (22-52); TOTAL IRON BINDING CAPACITY 144 ug/dl (241-421)
[2018-08-02 08:14] LABS: AADO2 Arterial 44.5 mmHg (7.0-24.0); Arterial Base Excess -3.9 mmol/L (-3.0-3); Arterial Blood Gas Oxygen Sat 98.7 mmHG (95.0-100.0); Arterial COHb 0.8 % (0.0-3.0); Arterial Fraction of Oxyhgb 97.5 % (93.0-99.0); Arterial HCO3 19.8 mmol/L (22.0-26.0); Arterial MetHb 0.4 % (0.0-1.5); Arterial pCO2 31.3 mmhg (35-45); MODE VENT - AC; Site A-Line
[2018-08-02] MEDS: LEVETIRACETAM 500 MG (PMX) 100 ML IVPB ×2 (09:13→20:43)
[2018-08-02] MEDS: MULTIVIT/CA CARB/B CMPLX/FA TAB PO (09:18)
[2018-08-02] MEDS: CALCIUM ACETATE 667 MG CAP PO ×3 (09:18→18:18)
[2018-08-02] MEDS: SEVELAMER CARBONATE 0.8 GM PKT PO ×3 (09:18→18:18)
[2018-08-02] MEDS: BENAZEPRIL 40 MG TAB PO (09:18)
[2018-08-02] MEDS: AMLODIPINE 5 MG TAB PO ×2 (09:18→20:43)
[2018-08-02] MEDS: FAMOTIDINE 20 MG INJ IV (09:24)
[2018-08-02] MEDS: SOD FERRIC GLUC COMPLX 125 MG in SOD CHLORIDE 0.9% 100 ML IVPB (12:05)
[2018-08-02] MEDS: morphine 2 MG INJ IV ×2 (12:36→16:31)
[2018-08-02] MEDS: LIDOCAINE 1% (MPF) 5 ML VIAL (14:28)
[2018-08-02] MEDS: ACETAMINOPHEN 650MG/20.3ML CUP PO (15:40)
[2018-08-02] MEDS: MIDAZOLAM (DRIP) 50 mg/50 mL 50 ML IV (18:20)
[2018-08-02] MEDS: FENTAnyl (DRIP) 1000 mcg/100mL 100 ML IV (18:21)
[2018-08-02] MEDS: EPOETIN ALFA-EPBX (ESRD) 3,000 UNIT/ML VIAL SC (20:43)
[2018-08-03] MEDS: ACCU-CHEK XX (01:47)
[2018-08-03] MEDS: INSULIN ASPART [NOVOLOG] 3 ML PEN SC ×6 (01:50→20:38)
[2018-08-03 05:12] LABS: ADD MAN DIFF? NO
[2018-08-03 05:14] LABS: ABNORMAL IP MESSAGE 1; BASOPHILS % 0.1 % (0.0-2.0); EOSINOPHILS % 0.1 % (0.0-7.0); HEMATOCRIT 28.8 % (42.0-52.0); HEMOGLOBIN 8.8 g/dl (14.0-18.0); LYMPHOCYTES # 0.3 10^3/ul (0.8-2.9); LYMPHOCYTES % 3.2 % (15.0-51.0); MEAN CORPUSCULAR HEMOGLOBIN 26.3 pg (29.0-33.0); MEAN CORPUSCULAR HGB CONC 30.6 g/dl (32.0-37.0); MEAN CORPUSCULAR VOLUME 86.2 fl (82.0-101.0); MEAN PLATELET VOLUME 9.8 fl (7.4-10.4); MONOCYTE # 1.3 10^3/ul (0.3-0.9); MONOCYTES % 13.9 % (0.0-11.0); NEUTROPHIL # 7.6 10^3/ul (1.6-7.5); NEUTROPHILS % 82.3 % (39.0-77.0); PLATELET COUNT 152 10^3/UL (140-415); POSITIVE DIFF @See below; RED BLOOD COUNT 3.34 10^6/ul (4.70-6.10); RED CELL DISTRIBUTION WIDTH 17.6 % (11.5-14.5)
[2018-08-03 05:14] LABS: WHITE BLOOD COUNT 9.3 10^3/ul (4.8-10.8)
[2018-08-03 05:48] LABS: ANION GAP 9 (5-13); BLOOD UREA NITROGEN 53 mg/dl (7-20); CALCIUM 9.3 mg/dl (8.4-10.2); CARBON DIOXIDE 28 mmol/L (21-31); CHLORIDE 103 mmol/L (97-110); CREATININE 4.44 mg/dl (0.61-1.24); GLUCOSE 161 mg/dl (70-220); POTASSIUM 3.9 mmol/L (3.5-5.1); SODIUM 140 mmol/L (135-144)
[2018-08-03] MEDS: PIPER-TAZO 2.25 GM (PMX) 50 ML IVPB ×3 (06:07→22:56)
[2018-08-03 07:10] LABS: PROCALCITONIN 0.54 ng/mL (0.00-0.10)
[2018-08-03] MEDS: MULTIVIT/CA CARB/B CMPLX/FA TAB PO (08:56)
[2018-08-03] MEDS: SEVELAMER CARBONATE 0.8 GM PKT PO ×3 (08:56→17:35)
[2018-08-03] MEDS: AMLODIPINE 5 MG TAB PO ×2 (08:58→20:37)
[2018-08-03] MEDS: LEVETIRACETAM 500 MG (PMX) 100 ML IVPB ×2 (09:01→20:38)
[2018-08-03] MEDS: CALCIUM ACETATE 667 MG CAP PO ×3 (09:02→17:35)
[2018-08-03] MEDS: BENAZEPRIL 40 MG TAB PO (09:50)
[2018-08-03] MEDS: FAMOTIDINE 20 MG INJ IV (10:23)
[2018-08-03] MEDS: SOD FERRIC GLUC COMPLX 125 MG in SOD CHLORIDE 0.9% 100 ML IVPB (17:32)
[2018-08-03] MEDS: hydrALAzine 20 MG INJ IV (21:36)
[2018-08-04] MEDS: INSULIN ASPART [NOVOLOG] 3 ML PEN SC ×6 (01:00→21:00)
[2018-08-04] MEDS: ACCU-CHEK XX (02:10)
[2018-08-04] MEDS: PIPER-TAZO 2.25 GM (PMX) 50 ML IVPB ×3 (05:18→22:08)
[2018-08-04 05:42] LABS: ADD MAN DIFF? NO
[2018-08-04 06:00] LABS: WHITE BLOOD COUNT 9.1 10^3/ul (4.8-10.8)
[2018-08-04 06:00] LABS: ABNORMAL IP MESSAGE 1; BASOPHILS % 0.1 % (0.0-2.0); EOSINOPHILS # 0.1 10^3/ul (0.0-0.5); EOSINOPHILS % 1.3 % (0.0-7.0); HEMATOCRIT 31.6 % (42.0-52.0); HEMOGLOBIN 9.5 g/dl (14.0-18.0); LYMPHOCYTES # 0.4 10^3/ul (0.8-2.9); LYMPHOCYTES % 4.1 % (15.0-51.0); MEAN CORPUSCULAR HEMOGLOBIN 26.1 pg (29.0-33.0); MEAN CORPUSCULAR HGB CONC 30.1 g/dl (32.0-37.0); MEAN CORPUSCULAR VOLUME 86.8 fl (82.0-101.0); MEAN PLATELET VOLUME 9.6 fl (7.4-10.4); MONOCYTE # 1.4 10^3/ul (0.3-0.9); MONOCYTES % 15.5 % (0.0-11.0); NEUTROPHIL # 7.1 10^3/ul (1.6-7.5); NEUTROPHILS % 78.3 % (39.0-77.0); PLATELET COUNT 149 10^3/UL (140-415); POSITIVE DIFF @See below; RED BLOOD COUNT 3.64 10^6/ul (4.70-6.10); RED CELL DISTRIBUTION WIDTH 17.6 % (11.5-14.5)
[2018-08-04 06:29] LABS: ANION GAP 11 (5-13); BLOOD UREA NITROGEN 69 mg/dl (7-20); CALCIUM 9.5 mg/dl (8.4-10.2); CARBON DIOXIDE 26 mmol/L (21-31); CHLORIDE 103 mmol/L (97-110); CREATININE 5.57 mg/dl (0.61-1.24); GLUCOSE 127 mg/dl (70-220); POTASSIUM 4.2 mmol/L (3.5-5.1); SODIUM 140 mmol/L (135-144)
[2018-08-04] MEDS: CALCIUM ACETATE 667 MG CAP PO ×3 (07:35→17:35)
[2018-08-04] MEDS: SEVELAMER CARBONATE 0.8 GM PKT PO ×3 (07:35→17:35)
[2018-08-04 07:51] LABS: AADO2 Arterial 42.7 mmHg (7.0-24.0); Arterial Base Excess 0.6 mmol/L (-3.0-3); Arterial Blood Gas Oxygen Sat 98.4 mmHG (95.0-100.0); Arterial COHb 0.5 % (0.0-3.0); Arterial Fraction of Oxyhgb 97.6 % (93.0-99.0); Arterial MetHb 0.3 % (0.0-1.5); MODE VENT - AC; Site A-Line
[2018-08-04] MEDS: LEVETIRACETAM 500 MG (PMX) 100 ML IVPB ×2 (09:00→22:07)
[2018-08-04] MEDS ORDERED: LIDOCAINE 1% (MDV) 20 ML INJ (09:22)
[2018-08-04] MEDS: LIDOCAINE 1% (MDV) 20 ML INJ SC (10:00)
[2018-08-04] MEDS: DEXMEDETOMIDINE HCL 200 MCG in SOD CHLORIDE 0.9% 48 ML IV (10:03)
[2018-08-04] MEDS: AMLODIPINE 5 MG TAB PO ×2 (11:02→22:09)
[2018-08-04] MEDS: MULTIVIT/CA CARB/B CMPLX/FA TAB PO (11:02)
[2018-08-04] MEDS: BENAZEPRIL 40 MG TAB PO (11:02)
[2018-08-04] MEDS: FAMOTIDINE 20 MG TAB PO (11:03)
[2018-08-04] MEDS: POLYETHYLENE GLYCOL 17 GM PACKET PO (13:00)
[2018-08-04] MEDS: METOCLOPRAMIDE 10 MG INJ IV ×2 (13:54→22:08)
[2018-08-04] MEDS: SOD FERRIC GLUC COMPLX 125 MG in SOD CHLORIDE 0.9% 100 ML IVPB (14:00)
[2018-08-04] MEDS: morphine 2 MG INJ IV (16:40)
[2018-08-04] MEDS: EPOETIN ALFA-EPBX (ESRD) 3,000 UNIT/ML VIAL SC (21:20)
[2018-08-04 22:49] LABS: ALANINE AMINOTRANSFERASE 12 IU/L (13-69); ALBUMIN 2.7 g/dl (3.3-4.9); ALKALINE PHOSPHATASE 43 IU/L (42-121); ASPARTATE AMINO TRANSFERASE 12 IU/L (15-46); BILIRUBIN,INDIRECT 0.6 mg/dl (0-1.1); BILIRUBIN,TOTAL 0.6 mg/dl (0.2-1.3); TOTAL PROTEIN 5.8 g/dl (6.1-8.1)
[2018-08-05] MEDS: INSULIN ASPART [NOVOLOG] 3 ML PEN SC ×6 (00:56→20:45)
[2018-08-05] MEDS: ACCU-CHEK XX (00:56)
[2018-08-05] MEDS: METOCLOPRAMIDE 10 MG INJ IV ×4 (00:59→18:37)
[2018-08-05 05:18] LABS: ADD MAN DIFF? NO
[2018-08-05 05:20] LABS: ABNORMAL IP MESSAGE 1; BASOPHILS % 0.2 % (0.0-2.0); EOSINOPHILS # 0.3 10^3/ul (0.0-0.5); EOSINOPHILS % 2.6 % (0.0-7.0); HEMATOCRIT 30.2 % (42.0-52.0); HEMOGLOBIN 9.2 g/dl (14.0-18.0); LYMPHOCYTES # 0.3 10^3/ul (0.8-2.9); MEAN CORPUSCULAR HEMOGLOBIN 26.7 pg (29.0-33.0); MEAN CORPUSCULAR HGB CONC 30.5 g/dl (32.0-37.0); MEAN CORPUSCULAR VOLUME 87.8 fl (82.0-101.0); MEAN PLATELET VOLUME 9.4 fl (7.4-10.4); MONOCYTE # 1.2 10^3/ul (0.3-0.9); MONOCYTES % 11.7 % (0.0-11.0); NEUTROPHIL # 8.4 10^3/ul (1.6-7.5); PLATELET COUNT 135 10^3/UL (140-415); POSITIVE DIFF @See below; RED BLOOD COUNT 3.44 10^6/ul (4.70-6.10); RED CELL DISTRIBUTION WIDTH 17.6 % (11.5-14.5)
[2018-08-05 05:20] LABS: WHITE BLOOD COUNT 10.2 10^3/ul (4.8-10.8)
[2018-08-05 05:54] LABS: ANION GAP 11 (5-13); BLOOD UREA NITROGEN 35 mg/dl (7-20); CALCIUM 8.9 mg/dl (8.4-10.2); CARBON DIOXIDE 29 mmol/L (21-31); CHLORIDE 102 mmol/L (97-110); CREATININE 3.79 mg/dl (0.61-1.24); GLUCOSE 99 mg/dl (70-220); POTASSIUM 3.6 mmol/L (3.5-5.1); SODIUM 142 mmol/L (135-144)
[2018-08-05] MEDS: PIPER-TAZO 2.25 GM (PMX) 50 ML IVPB ×3 (05:55→22:14)
[2018-08-05] MEDS: AMLODIPINE 5 MG TAB PO ×2 (09:00→20:59)
[2018-08-05] MEDS: BENAZEPRIL 40 MG TAB PO (09:00)
[2018-08-05] MEDS: LEVETIRACETAM 500 MG (PMX) 100 ML IVPB ×2 (09:30→20:46)
[2018-08-05] MEDS: SEVELAMER CARBONATE 0.8 GM PKT PO ×3 (09:30→17:35)
[2018-08-05] MEDS: MULTIVIT/CA CARB/B CMPLX/FA TAB PO (09:30)
[2018-08-05] MEDS: CALCIUM ACETATE 667 MG CAP PO ×3 (09:31→17:35)
[2018-08-05] MEDS: POLYETHYLENE GLYCOL 17 GM PACKET PO (09:31)
[2018-08-05] MEDS: FAMOTIDINE 20 MG TAB PO (09:32)
[2018-08-05 10:09] LABS: AADO2 Arterial 47.7 mmHg (7.0-24.0); Arterial Base Excess 3.4 mmol/L (-3.0-3); Arterial Blood Gas Oxygen Sat 98.2 mmHG (95.0-100.0); Arterial COHb 0.1 % (0.0-3.0); Arterial Fraction of Oxyhgb 97.6 % (93.0-99.0); Arterial HCO3 28.2 mmol/L (22.0-26.0); Arterial MetHb 0.5 % (0.0-1.5); Arterial pCO2 43.6 mmhg (35-45); Blood Gas PS 10; MODE VENT - CPAP; Site LB
[2018-08-05] MEDS: SOD FERRIC GLUC COMPLX 125 MG in SOD CHLORIDE 0.9% 100 ML IVPB (12:47)
[2018-08-06] MEDS: METOCLOPRAMIDE 10 MG INJ IV ×3 (00:36→12:35)
[2018-08-06] MEDS: INSULIN ASPART [NOVOLOG] 3 ML PEN SC ×6 (01:00→21:00)
[2018-08-06] MEDS: ACCU-CHEK XX (01:08)
[2018-08-06 05:36] LABS: ADD MAN DIFF? NO
[2018-08-06 05:39] LABS: WHITE BLOOD COUNT 13.3 10^3/ul (4.8-10.8)
[2018-08-06 05:39] LABS: ABNORMAL IP MESSAGE 1; BASOPHILS % 0.2 % (0.0-2.0); EOSINOPHILS # 0.4 10^3/ul (0.0-0.5); EOSINOPHILS % 2.6 % (0.0-7.0); HEMATOCRIT 29.2 % (42.0-52.0); HEMOGLOBIN 8.7 g/dl (14.0-18.0); LYMPHOCYTES # 0.3 10^3/ul (0.8-2.9); MEAN CORPUSCULAR HEMOGLOBIN 26.5 pg (29.0-33.0); MEAN CORPUSCULAR HGB CONC 29.8 g/dl (32.0-37.0); MEAN PLATELET VOLUME 10.1 fl (7.4-10.4); MONOCYTE # 1.3 10^3/ul (0.3-0.9); NEUTROPHIL # 11.2 10^3/ul (1.6-7.5); NEUTROPHILS % 84.5 % (39.0-77.0); PLATELET COUNT 140 10^3/UL (140-415); POSITIVE DIFF @See below; RED BLOOD COUNT 3.28 10^6/ul (4.70-6.10); RED CELL DISTRIBUTION WIDTH 17.5 % (11.5-14.5)
[2018-08-06 06:27] LABS: ANION GAP 13 (5-13); BLOOD UREA NITROGEN 47 mg/dl (7-20); CALCIUM 9.5 mg/dl (8.4-10.2); CARBON DIOXIDE 28 mmol/L (21-31); CHLORIDE 103 mmol/L (97-110); CREATININE 4.85 mg/dl (0.61-1.24); GLUCOSE 109 mg/dl (70-220); POTASSIUM 3.9 mmol/L (3.5-5.1)
[2018-08-06 07:06] LABS: SODIUM 144 mmol/L (135-144)
[2018-08-06] MEDS: MULTIVIT/CA CARB/B CMPLX/FA TAB PO (08:30)
[2018-08-06] MEDS: FAMOTIDINE 20 MG TAB PO (08:31)
[2018-08-06] MEDS: CALCIUM ACETATE 667 MG CAP PO ×3 (08:31→18:03)
[2018-08-06] MEDS: POLYETHYLENE GLYCOL 17 GM PACKET PO (08:34)
[2018-08-06] MEDS: SEVELAMER CARBONATE 0.8 GM PKT PO ×3 (08:34→18:03)
[2018-08-06] MEDS: LEVETIRACETAM 500 MG (PMX) 100 ML IVPB ×2 (08:39→21:55)
[2018-08-06] MEDS: CEFAZOLIN 1 GM/50 ML (PMX) 50 ML IVPB (12:35)
[2018-08-06] MEDS: SOD FERRIC GLUC COMPLX 125 MG in SOD CHLORIDE 0.9% 100 ML IVPB (13:38)
[2018-08-06] MEDS: AMLODIPINE 5 MG TAB PO ×2 (16:16→21:54)
[2018-08-06] MEDS: BENAZEPRIL 40 MG TAB PO (16:27)
[2018-08-06] MEDS: EPOETIN ALFA-EPBX (ESRD) 3,000 UNIT/ML VIAL SC (18:04)
[2018-08-07] MEDS: INSULIN ASPART [NOVOLOG] 3 ML PEN SC ×6 (01:00→21:00)
[2018-08-07] MEDS: ACCU-CHEK XX (01:32)
[2018-08-07 05:12] LABS: ADD MAN DIFF? NO
[2018-08-07 05:20] LABS: WHITE BLOOD COUNT 10.5 10^3/ul (4.8-10.8)
[2018-08-07 05:20] LABS: ABNORMAL IP MESSAGE 1; BASOPHILS % 0.2 % (0.0-2.0); EOSINOPHILS # 0.3 10^3/ul (0.0-0.5); EOSINOPHILS % 2.7 % (0.0-7.0); LYMPHOCYTES # 0.4 10^3/ul (0.8-2.9); LYMPHOCYTES % 3.8 % (15.0-51.0); MEAN CORPUSCULAR HEMOGLOBIN 26.3 pg (29.0-33.0); MEAN CORPUSCULAR HGB CONC 29.6 g/dl (32.0-37.0); MEAN CORPUSCULAR VOLUME 88.8 fl (82.0-101.0); MEAN PLATELET VOLUME 9.8 fl (7.4-10.4); MONOCYTE # 1.4 10^3/ul (0.3-0.9); MONOCYTES % 12.9 % (0.0-11.0); NEUTROPHIL # 8.4 10^3/ul (1.6-7.5); NEUTROPHILS % 79.3 % (39.0-77.0); PLATELET COUNT 168 10^3/UL (140-415); POSITIVE DIFF @See below; RED BLOOD COUNT 3.04 10^6/ul (4.70-6.10); RED CELL DISTRIBUTION WIDTH 17.9 % (11.5-14.5)
[2018-08-07 06:08] LABS: ANION GAP 9 (5-13); BLOOD UREA NITROGEN 24 mg/dl (7-20); CALCIUM 9.5 mg/dl (8.4-10.2); CARBON DIOXIDE 29 mmol/L (21-31); CHLORIDE 103 mmol/L (97-110); CREATININE 3.67 mg/dl (0.61-1.24); GLUCOSE 92 mg/dl (70-220); POTASSIUM 3.7 mmol/L (3.5-5.1); SODIUM 141 mmol/L (135-144)
[2018-08-07] MEDS: SEVELAMER CARBONATE 0.8 GM PKT PO ×3 (08:12→17:27)
[2018-08-07] MEDS: CALCIUM ACETATE 667 MG CAP PO ×3 (08:12→17:27)
[2018-08-07] MEDS: MULTIVIT/CA CARB/B CMPLX/FA TAB PO (09:10)
[2018-08-07] MEDS: BENAZEPRIL 40 MG TAB PO (09:10)
[2018-08-07] MEDS: FAMOTIDINE 20 MG TAB PO (09:10)
[2018-08-07] MEDS: LEVETIRACETAM 500 MG (PMX) 100 ML IVPB ×2 (09:11→21:58)
[2018-08-07] MEDS: AMLODIPINE 5 MG TAB PO ×2 (09:11→21:59)
[2018-08-07] MEDS: POLYETHYLENE GLYCOL 17 GM PACKET PO (09:11)
[2018-08-07] MEDS: morphine 2 MG INJ IV (10:09)
[2018-08-07] MEDS: CEFAZOLIN 1 GM/50 ML (PMX) 50 ML IVPB (12:25)
[2018-08-08] MEDS: INSULIN ASPART [NOVOLOG] 3 ML PEN SC ×6 (01:00→21:00)
[2018-08-08] MEDS: ACCU-CHEK XX (02:00)
[2018-08-08 05:49] LABS: ADD MAN DIFF? NO
[2018-08-08 06:12] LABS: WHITE BLOOD COUNT 11.1 10^3/ul (4.8-10.8)
[2018-08-08 06:12] LABS: ABNORMAL IP MESSAGE 1; BASOPHILS % 0.1 % (0.0-2.0); EOSINOPHILS # 0.2 10^3/ul (0.0-0.5); EOSINOPHILS % 1.7 % (0.0-7.0); HEMATOCRIT 27.7 % (42.0-52.0); HEMOGLOBIN 8.5 g/dl (14.0-18.0); LYMPHOCYTES # 0.4 10^3/ul (0.8-2.9); LYMPHOCYTES % 3.6 % (15.0-51.0); MEAN CORPUSCULAR HGB CONC 30.7 g/dl (32.0-37.0); MEAN CORPUSCULAR VOLUME 87.9 fl (82.0-101.0); MEAN PLATELET VOLUME 10.2 fl (7.4-10.4); MONOCYTE # 1.2 10^3/ul (0.3-0.9); MONOCYTES % 11.2 % (0.0-11.0); NEUTROPHIL # 9.1 10^3/ul (1.6-7.5); NEUTROPHILS % 82.3 % (39.0-77.0); NUCLEATED RED BLOOD CELLS% 0.3 /100WBC (0.0-0.0); PLATELET COUNT 182 10^3/UL (140-415); POSITIVE DIFF @See below; RED BLOOD COUNT 3.15 10^6/ul (4.70-6.10); RED CELL DISTRIBUTION WIDTH 17.7 % (11.5-14.5)
[2018-08-08 07:13] LABS: ANION GAP 9 (5-13); BLOOD UREA NITROGEN 38 mg/dl (7-20); CARBON DIOXIDE 29 mmol/L (21-31); CHLORIDE 103 mmol/L (97-110); CREATININE 5.38 mg/dl (0.61-1.24); GLUCOSE 109 mg/dl (70-220); SODIUM 141 mmol/L (135-144)
[2018-08-08] MEDS: LEVETIRACETAM 500 MG (PMX) 100 ML IVPB ×2 (09:46→21:43)
[2018-08-08] MEDS: CALCIUM ACETATE 667 MG CAP PO ×3 (09:48→17:49)
[2018-08-08] MEDS: FAMOTIDINE 20 MG TAB PO (09:49)
[2018-08-08] MEDS: SEVELAMER CARBONATE 0.8 GM PKT PO ×3 (09:49→17:49)
[2018-08-08] MEDS: POLYETHYLENE GLYCOL 17 GM PACKET PO (09:49)
[2018-08-08] MEDS: MULTIVIT/CA CARB/B CMPLX/FA TAB PO (09:49)
[2018-08-08] MEDS: BENAZEPRIL 40 MG TAB PO (09:52)
[2018-08-08] MEDS: AMLODIPINE 5 MG TAB PO ×2 (09:54→21:45)
[2018-08-09] MEDS: ACCU-CHEK XX (02:45)
[2018-08-09] MEDS ORDERED: INSULIN ASPART [NOVOLOG] 3 ML PEN SC (03:00)
[2018-08-09 08:35] LABS: ADD MAN DIFF? NO
[2018-08-09 08:46] LABS: WHITE BLOOD COUNT 9.5 10^3/ul (4.8-10.8)
[2018-08-09 08:46] LABS: ABNORMAL IP MESSAGE 1; BASOPHILS % 0.3 % (0.0-2.0); EOSINOPHILS # 0.2 10^3/ul (0.0-0.5); EOSINOPHILS % 2.5 % (0.0-7.0); HEMATOCRIT 29.4 % (42.0-52.0); HEMOGLOBIN 8.9 g/dl (14.0-18.0); LYMPHOCYTES # 0.4 10^3/ul (0.8-2.9); LYMPHOCYTES % 3.9 % (15.0-51.0); MEAN CORPUSCULAR HEMOGLOBIN 26.6 pg (29.0-33.0); MEAN CORPUSCULAR HGB CONC 30.3 g/dl (32.0-37.0); MEAN CORPUSCULAR VOLUME 87.8 fl (82.0-101.0); MEAN PLATELET VOLUME 9.1 fl (7.4-10.4); MONOCYTE # 0.9 10^3/ul (0.3-0.9); MONOCYTES % 9.7 % (0.0-11.0); NEUTROPHIL # 7.8 10^3/ul (1.6-7.5); NEUTROPHILS % 82.6 % (39.0-77.0); PLATELET COUNT 176 10^3/UL (140-415); POSITIVE DIFF @See below; RED BLOOD COUNT 3.35 10^6/ul (4.70-6.10); RED CELL DISTRIBUTION WIDTH 17.2 % (11.5-14.5)
[2018-08-09] MEDS: AMLODIPINE 5 MG TAB PO ×2 (09:00→20:58)
[2018-08-09 09:07] LABS: ANION GAP 9 (5-13); BLOOD UREA NITROGEN 54 mg/dl (7-20); CALCIUM 9.8 mg/dl (8.4-10.2); CARBON DIOXIDE 29 mmol/L (21-31); CHLORIDE 102 mmol/L (97-110); CREATININE 6.83 mg/dl (0.61-1.24); GLUCOSE 119 mg/dl (70-220); MAGNESIUM 2.5 mg/dl (1.7-2.5); PHOSPHORUS 4.3 mg/dl (2.5-4.9); POTASSIUM 4.3 mmol/L (3.5-5.1); SODIUM 140 mmol/L (135-144)
[2018-08-09] MEDS: POLYETHYLENE GLYCOL 17 GM PACKET PO (09:11)
[2018-08-09] MEDS: SEVELAMER CARBONATE 0.8 GM PKT PO ×3 (09:11→18:40)
[2018-08-09] MEDS: FAMOTIDINE 20 MG TAB PO (09:11)
[2018-08-09] MEDS: MULTIVIT/CA CARB/B CMPLX/FA TAB PO (09:11)
[2018-08-09] MEDS: LEVETIRACETAM 500 MG (PMX) 100 ML IVPB ×2 (09:11→20:57)
[2018-08-09] MEDS: CALCIUM ACETATE 667 MG CAP PO ×3 (09:11→18:40)
[2018-08-09] MEDS: INSULIN ASPART [NOVOLOG] 3 ML PEN SC ×4 (10:30→21:00)
[2018-08-09] MEDS: BENAZEPRIL 40 MG TAB PO (13:34)
[2018-08-09] MEDS: EPOETIN ALFA-EPBX (ESRD) 3,000 UNIT/ML VIAL SC (18:42)
[2018-08-09] MEDS: morphine 2 MG INJ IV (19:36)
[2018-08-10] MEDS: INSULIN ASPART [NOVOLOG] 3 ML PEN SC ×4 (01:00→13:00)
[2018-08-10] MEDS: morphine 2 MG INJ IV ×2 (01:16→13:18)
[2018-08-10] MEDS: ACCU-CHEK XX (01:16)
[2018-08-10] MEDS: MULTIVIT/CA CARB/B CMPLX/FA TAB PO (11:05)
[2018-08-10] MEDS: BENAZEPRIL 40 MG TAB PO (11:05)
[2018-08-10] MEDS: CALCIUM ACETATE 667 MG CAP PO ×2 (11:05→15:12)
[2018-08-10] MEDS: SEVELAMER CARBONATE 0.8 GM PKT PO ×2 (11:05→15:12)
[2018-08-10] MEDS: FAMOTIDINE 20 MG TAB PO (11:07)
[2018-08-10] MEDS: POLYETHYLENE GLYCOL 17 GM PACKET PO (11:07)
[2018-08-10] MEDS: AMLODIPINE 5 MG TAB PO (11:08)
[2018-08-10] MEDS: LEVETIRACETAM 500 MG (PMX) 100 ML IVPB (11:08)
[2018-08-10] MEDS: morphine (DRIP) 100 MG/100 ML 100 ML IV (16:50)
== END 2018-08-10 20:58 | disposition expired | DRG 23 ==
LOC: ICU 07-27 08:41 → E/R 17:01 → ICU 21:18
PROVIDERS: Family Medicine
PROC: 00C40ZZ Extirpation of Matter from Intracranial Subdural Space, Open Approach (ICD-10-PCS; principal; 2018-08-01 09:29)
PROC: 5A1D70Z Performance of Urinary Filtration, Intermittent, Less than 6 Hours Per Day (ICD-10-PCS; 2018-08-01 09:29)
PROC: 0W9930Z Drainage of Right Pleural Cavity with Drainage Device, Percutaneous Approach (ICD-10-PCS; 2018-08-01 09:29)
PROC: 30233R1 Transfusion of Nonautologous Platelets into Peripheral Vein, Percutaneous Approach (ICD-10-PCS; 2018-08-01 09:29)
PROC: 30233N1 Transfusion of Nonautologous Red Blood Cells into Peripheral Vein, Percutaneous Approach (ICD-10-PCS; 2018-08-01 09:29)
PROC: 5A1955Z Respiratory Ventilation, Greater than 96 Consecutive Hours (ICD-10-PCS; 2018-08-01 09:29)
PROC: 0W9900Z Drainage of Right Pleural Cavity with Drainage Device, Open Approach (ICD-10-PCS; 2018-08-01 09:29)
DX: S06.6X0A Traumatic subarachnoid hemorrhage without loss of consciousness, initial encounter (principal); N18.6 End stage renal disease; J69.0 Pneumonitis due to inhalation of food and vomit; J96.01 Acute respiratory failure with hypoxia; I12.0 Hypertensive chronic kidney disease with stage 5 chronic kidney disease or end stage renal disease; J93.9 Pneumothorax, unspecified; D62 Acute posthemorrhagic anemia; G93.40 Encephalopathy, unspecified; Z99.11 Dependence on respirator [ventilator] status; G81.94 Hemiplegia, unspecified affecting left nondominant side; S06.5X0A Traumatic subdural hemorrhage without loss of consciousness, initial encounter; D69.6 Thrombocytopenia, unspecified; E11.22 Type 2 diabetes mellitus with diabetic chronic kidney disease; Z99.2 Dependence on renal dialysis; Z79.02 Long term (current) use of antithrombotics/antiplatelets; I48.91 Unspecified atrial fibrillation; W19.XXXA Unspecified fall, initial encounter; M54.2 Cervicalgia; R40.2432 Glasgow coma scale score 3-8, at arrival to emergency department; Z91.81 History of falling; D63.1 Anemia in chronic kidney disease; R56.9 Unspecified convulsions
CPT/HCPCS: 36415; 36430; 36600; 70450; 70551; 71045; 72125; 72128; 76942; 80048; 80053; 80076; 82140; 82803; 82962; 83540; 83605; 83690; 83735; 84100; 84145; 84484; 85025; 85610; 85730; 86644; 86850; 86900; 86901; 86920; 86945; 87040-91; 87081; 87340; 90935; 92610; 93005; 93306; 93971; 94002; 94003; 94660; 94664; 94770; 95819; 96374; 97110; 97163; 99285-25